=== PATIENT | male | born 1955 | race Caucasian/White ===

== ENCOUNTER 2023-11-17 08:10 | Day surgery (SDC) | payer MEDICARE ==
[2023-11-15 15:12] VITALS: BMI 32.3
[2023-11-17 08:35] LABS: Hematocrit 44.4 % (38.8-50.0); Hemoglobin 15.4 g/dL (13.5-17.5)
[2023-11-17 08:48] LABS: Anion Gap 14 mmol/L (10-20); BUN (Urea Nitrogen) 21 mg/dL (8.4-25.7); Calc. Creatinine Clearance 101 mL/min (70-130); Carbon Dioxide 26 mmol/L (23-31); Chloride 104 mmol/L (98-107); Estimated GFR 79; Glucose 190 mg/dL (80-115); Potassium 3.8 mmol/L (3.5-5.1); Sodium 140 mmol/L (136-145)
[2023-11-17] MEDS ORDERED: CEFAZOLIN 2 GM VIAL ONE (11:11)
[2023-11-17] MEDS ORDERED: EPINEPHrine 1 MG/ML VIAL ONE (11:11)
[2023-11-17] MEDS ORDERED: oFLOXacin 0.3% Opth 5 ML BOT ONE (11:12)
[2023-11-17] MEDS ORDERED: Mupirocin 2% Ointment 22 GM Tube ONE (11:12)
[2023-11-17] MEDS ORDERED: Rocuronium Bromide 10 MG/ML (10ML VIAL) ONE (11:15)
[2023-11-17] MEDS ORDERED: Ondansetron PF 4 MG/2 ML Vial ONE ×2 (11:15→11:16)
[2023-11-17] MEDS ORDERED: Dexamethasone 20 MG/5 ML VIAL ONE (11:15)
[2023-11-17] MEDS ORDERED: Midazolam HCl 2 mg/2 ml Vial ONE (11:15)
[2023-11-17] MEDS ORDERED: PROPOFOL 20 ML ONE ×2 (11:15→12:31)
[2023-11-17] MEDS ORDERED: Fentanyl 250 MCG/5 ML VIAL ONE (11:15)
[2023-11-17] MEDS ORDERED: Lidocaine 1% PF 5 ML VIAL ONE (11:15)
[2023-11-17] MEDS ORDERED: SUGAMMADEX SODIUM 200 MG/2 ML VIAL ONE (11:16)
[2023-11-17] MEDS ORDERED: Glycopyrrolate 0.2 MG/ML 5 ML SYRINGE ONE (12:01)
[2023-11-17] MEDS ORDERED: fentaNYL 50 mcg/mL 1 mL Vial ONE (14:42)
== END 2023-11-17 17:05 | disposition home or self-care (01) ==
LOC: CSHSDC 08:10
PROVIDERS: ATTEND Otolaryngology Plastic Surgery within the Head & Neck
PROC: 09Q87ZZ Repair Left Tympanic Membrane, Via Natural or Artificial Opening (ICD-10-PCS; principal; 2023-11-17)
DX: H69.93 Unspecified Eustachian tube disorder, bilateral (principal); H72.93 Unspecified perforation of tympanic membrane, bilateral; H90.6 Mixed conductive and sensorineural hearing loss, bilateral; H65.22 Chronic serous otitis media, left ear; E11.9 Type 2 diabetes mellitus without complications; C61 Malignant neoplasm of prostate; F31.9 Bipolar disorder, unspecified; N40.1 Benign prostatic hyperplasia with lower urinary tract symptoms; R32 Unspecified urinary incontinence; E78.5 Hyperlipidemia, unspecified; I25.10 Atherosclerotic heart disease of native coronary artery without angina pectoris; I10 Essential (primary) hypertension; Z98.890 Other specified postprocedural states; Z79.899 Other long term (current) drug therapy
CPT/HCPCS: 69440; 69631; 69706; 80048; 85014; 85018; 93005; J0171; J3010; 36415; 93010; C1713; C1726; C1781; J1100; J2250; J2405; J2704